=== PATIENT | male | born 1970 | race Hispanic/Latino ===

== ENCOUNTER 2024-08-12 07:43 | Outpatient (CLI) | payer OTHER, SELFPAY ==
--- NOTE | ~2024-08-12 | US_ITS ---
EXAMINATION: US retroperitoneal duplex ltd DATE: 08/12/2024 08:45 INDICATION: Resistant hypertension disorder TECHNIQUE: Multiple grayscale, color Doppler, and pulsed Doppler images of the kidneys and renal radha juan were obtained. COMPARISON: None. FINDINGS: The aorta peak systolic velocity is 93 cm/s. The right renal artery peak systolic velocity is 99 cm/s in the proximal segment, 80 cm/s in the mid segment, and 96 cm/s in the distal segment. The left dheeraj al artery peak systolic velocity is 79 cm/s in the proximal segment, 49 cm/s in the mid segment, and 96 cm/s in the distal segment. There is normal renal contour and echogenicity bilaterally. The right kidney measures 11.5 x 6.3 x 6. 1 cm and the left 11.4 x 5.9 x 5.1 cm. There are no focal renal lesions identified. There is mild le ft hydronephrosis. IMPRESSION: 1. No Doppler evidence of renal artery stenosis. 2. Mild left hydronephrosis. Otherwise normal kidneys. Reviewed, dictated and finalized at location A.
--- NOTE | ~2024-08-12 | XR_ITS ---
EXAMINATION: XR thoracic spine 3V DATE: 08/12/2024 08:08 INDICATION: Back pain. TECHNIQUE: 3 views of thoracic spine on 4 radiographs were obtained. COMPARISON: None. FINDINGS: There is 9 degrees dextrocurvature of lumbar spine. Vertebral body heights are normal. Inte rvertebral disc heights are normal in thoracic spine. There are endplate osteophytes at multiple leve ls. IMPRESSION: 1. Mild thoracic spondylosis. Reviewed, dictated and finalized at location B.
== END 2024-08-12 07:44 | disposition home or self-care (01) ==
PROVIDERS: PCP Physician Assistant Medical; Visit Provider Physician Assistant Medical
DX: I1A.0 Resistant hypertension (principal); M47.894 Other spondylosis, thoracic region
CPT/HCPCS: 72072; 93976